=== PATIENT | female | born 2005 | race Caucasian/White ===

== ENCOUNTER 2024-07-18 13:52 | Emergency (ER) | payer OTHER, SELFPAY ==
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
[2024-07-18 14:33] VITALS: BP 102/63; BP 158/78; PULSE 77; PULSE 98; RESP 18; TEMP 37.2; O2SAT 98; O2SAT 99; BMI 35.4
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
[2024-07-18 16:13] VITALS: BP 112/57; PULSE 68; RESP 16; TEMP 36.4; O2SAT 98
[2024-07-18 17:01] LABS: HCG Quantitative 147970 mIU/mL
[2024-07-18] MEDS: Acetaminophen 325 MG TABLET 975 MG PO (17:40)
[2024-07-18 18:04] VITALS: BP 112/59; PULSE 78; RESP 16; TEMP 36.6; O2SAT 96
[2024-07-18 19:19] VITALS: BP 114/60; PULSE 77; RESP 16; TEMP 36.6; O2SAT 100
[2024-07-18 19:21] VITALS: BP 114/60; PULSE 77; RESP 16; TEMP 36.6; O2SAT 100
== END 2024-07-18 19:25 | disposition home or self-care (01) ==
PROVIDERS: Physician Assistant Medical; Emergency Provider Emergency Medicine; PCP Pediatrics Adolescent Medicine
DX: O9A.311 Physical abuse complicating pregnancy, first trimester (principal); R51.9 Headache, unspecified; Z3A.08 8 weeks gestation of pregnancy; Y07.030 Male partner, current, perpetrator of maltreatment and neglect
CPT/HCPCS: 36415; 76801; 84702; 99284